=== PATIENT | female | born 1985 ===

== ENCOUNTER 2023-10-04 02:44 | Emergency (ER) | payer MEDICAID ==
[2023-10-04] MEDS ORDERED: hydrOXYzine HCl 50 MG/ML SDV IM ONE (03:00)
[2023-10-04] MEDS ORDERED: Alum Hydroxide/Mag Hydroxide 15 ML, Lidocaine 2% 15 ML PO ONE ×2 (03:00)
[2023-10-04] MEDS ORDERED: Morphine 10 MG/ML SDV IM ONE (03:00)
[2023-10-04] MEDS: Iopamidol 755 Mg/ML 100 ML Bottle IV ONE (08:05)
[2023-10-04 08:23] LABS: BASOPHILS PERCENT AUTO 0.3 % (0.2-1.5); EOSINOPHILS ABSOLUTE AUTO 0.1 x10-3/uL (0.0-0.8); EOSINOPHILS PERCENT AUTO 0.7 % (0.6-8.1); HEMATOCRIT 39.3 % (34.2-48.2); LYMPHOCYTES ABSOLUTE AUTO 3.3 x10-3/uL (1.0-4.4); LYMPHOCYTES PERCENT AUTO 28.1 % (18.4-52.1); MEAN CORPUSCULAR HEMOGLOBIN 27.8 pg (23.9-33.9); MEAN CORPUSCULAR HGB CONC 33.1 g/dL (31.9-34.8); MEAN PLATELET VOLUME 7.8 fL (7.1-12.4); MONOCYTES ABSOLUTE AUTO 0.9 x10-3/uL (0.3-1.0); MONOCYTES PERCENT AUTO 7.9 % (4.4-15.7); NEUTROPHILS ABSOLUTE AUTO 7.3 x10-3/uL (1.5-6.3); PLATELET COUNT,PLT 353 x10(3)uL (151-488); RED BLOOD CELL COUNT 4.69 x10(6)uL (3.60-5.20); RED CELL DISTRIBUTION WIDTH 13.7 % (12.3-16.5); WHITE BLOOD CELL COUNT,WBC 11.7 x10-3/uL (3.0-10.3)
[2023-10-04 08:28] LABS: BLOOD UREA NITROGEN,BUN 12 mg/dL (7-18); CARBON DIOXIDE,CO2 25 mmol/L (21-32); CHLORIDE,CL 105 mmol/L (100-110); CREATININE 0.8 mg/dL (0.55-1.02); GLUCOSE RANDOM 147 mg/dL (80-116); POTASSIUM,K 3.3 mmol/L (3.5-5.3); SODIUM,NA 140 mmol/L (135-145)
[2023-10-04 08:29] LABS: ALANINE AMINOTRANSFERASE,ALT 17 U/L (12-36); ALBUMIN 3.4 g/dL (3.5-5.2); ALKALINE PHOSPHATASE 93 IU/L (56-112); AMYLASE 55 U/L (25-115); ASPARTATE AMNIOTRANSFERASE,AST 13 IU/L (5-25); BILIRUBIN TOTAL 0.2 mg/dL (0.1-1.3); CALCIUM 8.3 mg/dL (8.6-10.2); ESTIMATED GFR 98 mL/min (>60); PROTEIN TOTAL,TP 6.9 g/dL (6.0-8.0)
== END 2023-10-04 07:48 | disposition home or self-care (01) ==
LOC: FB.ED 02:44
DX: K21.9 Gastro-esophageal reflux disease without esophagitis (principal)
CPT/HCPCS: 36415; 74177; 80053; 82150; 83690; 85025; 93005; 93010; 96372; 99283; 99285; A9270-GY; J2270; J3410; Q9967